=== PATIENT | male | born 1955 | race Caucasian/White ===

== ENCOUNTER 2016-11-02 06:06 | Inpatient (IN) | payer MEDICARE, BC ==
[2016-11-02] MEDS ORDERED: DOPamine 400mg/250ml D5W 400 MG/250 ML BAG IV ONE (06:15)
[2016-11-02] MEDS ORDERED: Morphine 4 MG/ML VIAL ONE (06:26)
[2016-11-02] MEDS ORDERED: DOBUTamine 500mg/250ml D5W 250 ML IV STA (06:32)
[2016-11-02] MEDS ORDERED: Nitroglycerin 50mg in D5W 50 MG/250 ML BOTTLE IV STA ×2 (06:32→07:30)
[2016-11-02] MEDS ORDERED: Morphine 4 MG/ML VIAL IV STA (06:32)
--- NOTE | 2016-11-02 06:32 | C.PDOC ---
History Of Present Illness pt found in acute respiratory distress at the care home. Pt is DNR/DNI. Placed on bipap. Family at bedside and is aware of his critical condition Time Seen by Provider: 11/02/16 06:07 Chief Complaint (Nursing): Respiratory Distress History Per: EMS History/Exam Limitations: clinical condition Onset/Duration Of Symptoms: Hrs Current Symptoms Are (Timing): Worse Initiating Event: Other Exacerbating Factor(s): Laying Flat Current Respiratory Medications: See Home Med List Severity: Severe Pain Scale Rating Of: 10 Associated Symptoms: denies: Fever, Chills Reports Recently: Treated By A Physician Additional History Per: EMS Past Medical History Reviewed: Historical Data, Nursing Documentation, Vital Signs Vital Signs: Last Vital Signs Temp Pulse 138 H 11/02/16 06:10 Resp 28 H 11/02/16 06:10 BP 162/97 H 11/02/16 06:10 Pulse Ox 93 L 11/02/16 06:10 - Medical History PMH: CHF, COPD, HTN Family History: States: No Known Family Hx - Social History Hx Alcohol Use: No Hx Substance Use: No - Immunization History Hx Tetanus Toxoid Vaccination: No Hx Influenza Vaccination: No Hx Pneumococcal Vaccination: No Review Of Systems Review Of Systems: ROS cannot be obtained secondary to pt's inabilty to answer questions. Physical Exam - Physical Exam Appears: In Acute Distress Skin: Diaphoretic Head: Normacephalic Oral Mucosa: Moist Neck: Supple Cardiovascular: Rhythm Regular (tachy) Respiratory: Decreased Breath Sounds, Rales (thruout), No Rhonchi, Wheezing (few ) Gastrointestinal/Abdominal: Soft, No Tenderness, No Distention Back: No CVA Tenderness Extremity: No Tenderness Extremity: Right: Other (bka) Neurological/Psych: No Response To Commands, Other (on bipap) Gait: Unable To Assess ED Course And Treatment ECG: Interpreted By Me, Viewed By Me ECG Rhythm: Sinus Tachycardia (143), Nonspecific Changes O2 Sat by Pulse Oximetry: 93 Pulse Ox Interpretation: Abnormal (placed on bipap) - Radiology CXR: Interpreted by Me, Viewed By Me Progress Note: did femoral stick in order to obtain blood. pt tolerated the procedure well. 6;50 pt more responsive. sat 98 % Critical Care Time - Critical Care Note Total Time (in mins): 30 Documented critical care: time excludes all time spent performing seperately billable procedures. Disposition Counseled Patient/Family Regarding: Studies Performed, Diagnosis - Disposition Disposition Time: 06:55 Condition: CRITICAL Forms: [employer] (Slovak) - Clinical Impression Clinical Impression: Acute pulmonary edema, Respiratory distress Physician Patient Turnover Patient Signed Over To: Marianela Peace Handoff Comments: pending labs and disposition
[2016-11-02 06:53] LABS: ABG MECHANICAL RATE 16; ARTERIAL BLOOD GAS MODE BiPAP
[2016-11-02 06:57] LABS: BASO # 0.3 K/uL (0.0-0.2); EOS # 0.2 K/uL (0.0-0.7); EOS % 0.6 % (0.0-4.0); HEMATOCRIT 36.8 % (35.0-51.0); LYMPH # 1.9 K/uL (1.0-4.3); LYMPH % 5.8 % (20.0-40.0); MEAN CELL VOLUME 85.4 fL (80.0-94.0); MEAN CORPUSCULAR HEMOGLOBIN 27.5 pg (27.0-31.0); MEAN CORPUSCULAR HGB CONC 32.2 g/dL (33.0-37.0); MEAN PLATELET VOLUME 7.9 fL (7.2-11.7); MONO # 2.5 K/uL (0.0-0.8); MONO % 7.7 % (0.0-10.0); PLATELET COUNT 536 K/uL (130-400); RED CELL DISTRIBUTION WIDTH 15.3 % (11.5-14.5); WHITE BLOOD COUNT 32.3 K/uL (4.8-10.8)
[2016-11-02] MEDS ORDERED: Albuterol-Ipratrop 3 mg / 0.5 (3 ml) UD ONE (07:01)
[2016-11-02] MEDS ORDERED: DOBUTamine 500mg/250ml D5W 500 MG/250 ML BAG IV STA (07:03)
[2016-11-02 07:18] LABS: CHLORIDE 95 mmol/L (98-107)
[2016-11-02 07:19] LABS: POTASSIUM 4.9 mmol/L (3.6-5.2); SODIUM 137 mmol/L (132-148)
[2016-11-02 07:22] LABS: ALB/GLOB RATIO 0.9 (1.0-2.1); ALKALINE PHOSPHATASE 105 U/L (38-126); ALT/SGPT 59 U/L (21-72); AST/SGOT 47 U/L (17-59); BILIRUBIN,TOTAL 0.6 mg/dL (0.2-1.3); BLOOD UREA NITROGEN 26 mg/dL (9-20); CARBON DIOXIDE 31 mmol/L (22-30); GFR AFRICAN-AMERICAN > 60; GLUCOSE,RANDOM 253 mg/dL (75-110); TOTAL PROTEIN 6.9 g/dL (6.3-8.3)
[2016-11-02 07:31] VITALS: O2SAT 100
[2016-11-02 07:48] LABS: RBC URINE 2 /hpf (0-3); URINE BACTERIA RARE (<OCC); URINE BILIRUBIN NEGATIVE (NEGATIVE); URINE BLOOD 1+ (NEGATIVE); URINE COLOR Yellow (YELLOW); URINE GLUCOSE (UA) 3+ mg/dL (Normal); URINE KETONE NEGATIVE (NEGATIVE); URINE LEUKOCYTE ESTERASE TRACE Leu/uL (Negative); URINE PROTEIN 2+ mg/dL (NEGATIVE); URINE UROBILINOGEN NORMAL mg/dL (0.2-1.0); WBC URINE 18 /hpf (0-5)
[2016-11-02] MEDS ORDERED: Nitroglycerin 2% Ointment Foilpak UD TOP STA (07:56)
[2016-11-02] MEDS ORDERED: Moxifloxacin IV 400mg/250ml NS 400 MG/250 ML BAG IVPB ONE (07:56)
[2016-11-02] MEDS ORDERED: Nitroglycerin 2% Ointment Foilpak UD TOP ONE (08:09)
[2016-11-02 08:15] LABS: NEUTROPHIL 86 % (50-75); TOTAL CELLS COUNTED 100
[2016-11-02] MEDS ORDERED: Cefepime IV 2 gm in Dextrose 2 GM/100 ML BAG IVPB STA (08:18)
[2016-11-02] MEDS ORDERED: Vancomycin 1 GM 1 GM/250 ML BAG IVPB ONE ×2 (09:00→09:15)
--- NOTE | 2016-11-02 10:29 | RAD ---
PROCEDURE: CHEST RADIOGRAPH, 1 VIEW HISTORY: Shortness of breath COMPARISON: 11/06/2014 FINDINGS: LUNGS: Prominent diffuse increased interstitial lung consolidative markings throughout both lungs most predominant in the upper to mid lung zones on the right and throughout the left lung. Suggestion of a small left pleural effusion. PLEURA: As above. CARDIOVASCULAR: Status post median sternotomy. Cardiomegaly. OSSEOUS STRUCTURES: No significant abnormalities. VISUALIZED UPPER ABDOMEN: Normal. OTHER FINDINGS: None. IMPRESSION: Prominent diffuse increased interstitial lung consolidative markings throughout both lungs most predominant in the upper to mid lung zones on the right and throughout the left lung. Suggestion of a small left pleural effusion.
--- NOTE | 2016-11-02 11:12 | CP.PCM.PN ---
Subjective - Date & Time of Evaluation Date of Evaluation: 11/02/16 Time of Evaluation: 11:00 - Subjective Subjective: PROGRESS NOTE. Service for Dr. West This is a 61 yo male with past medical hx of CAD, DM, COPD, CHF presenting from [facility] in [place]. Pt on bipap at time of evaluation and direct hx obtained from pt was limited. Hx mainly obtained from pt's sunshine. Pt normally goes to [facility] and was taken here because of proximity. Pt's sunshine received call from skilled nursing this morning saying pt was short of breath and needed to go to hospital. Pt has had multiple hospital admissions recently with similar complaints. Pt given lasix and abx in ER, and was placed on bipap. Pt now saturating well, with some improvement in sob. Denies chest pain, fevers, chills, vomiting, diarrhea, any other complaints. PMH: CAD, DM, COPD, CHF PSH: triple bypass, hernia repair, multiple coronary stents, right leg below the knee amputation Allergies: NKDA FH: Non contributory Social hx: Long time smoker. Does not smoke now. Previously 2-3 ppd. No drinking or substance use. Born in . Lives in [facility]. Objective - Vital Signs/Intake and Output Vital Signs (last 24 hours): Temp Pulse Resp BP Pulse Ox 98.5 F 105 H 25 H 118/75 100 11/02/16 06:50 11/02/16 09:44 11/02/16 09:44 11/02/16 09:44 11/02/16 09:44 Intake and Output: 11/02/16 11/02/16 06:59 18:59 Output Total 150 Balance -150 - Medications Medications: Current Medications Albuterol/Ipratropium (Duoneb 3 Mg/0.5 Mg (3 Ml) Ud) 3 ml INH RQ6 LISA Aspirin (Aspirin Chewable) 81 mg PO DAILY LISA Clopidogrel Bisulfate (Plavix) 75 mg PO DAILY LISA Famotidine (Pepcid) 20 mg PO Q12 LISA Furosemide (Lasix) 40 mg IVP DAILY [facility] Home Med (Arformoterol [Brovana]) 15 mcg IH Q12 LISA Insulin Human Regular (Novolin R) 0 unit SC ACHS LISA PRN Reason: Protocol Lisinopril (Zestril) 20 mg PO DAILY LISA Methylprednisolone (Solu-Medrol) 40 mg IVP Q12 LISA Rosuvastatin Calcium (Crestor) 40 mg PO HS LISA - Labs Labs: PT 11.4 SECONDS (9.7-12.2) 11/02/16 06:54 INR 1.0 11/02/16 06:54 APTT 31 SECONDS (21-34) 11/02/16 06:54 - Constitutional Appears: In Acute Distress, Chronically Ill - Head Exam Head Exam: ATRAUMATIC, NORMAL INSPECTION, NORMOCEPHALIC - Eye Exam Eye Exam: EOMI - ENT Exam ENT Exam: Mucous Membranes Moist - Neck Exam Neck Exam: Full ROM, Normal Inspection - Respiratory Exam Respiratory Exam: Rales. absent: NORMAL BREATHING PATTERN - Cardiovascular Exam Cardiovascular Exam: Tachycardia, +S1, +S2 - GI/Abdominal Exam GI & Abdominal Exam: Soft, Normal Bowel Sounds. absent: Tenderness - Extremities Exam Extremities Exam: absent: Full ROM, Normal Inspection Additional comments: right leg BKA - Neurological Exam Neurological Exam: Alert, Awake - Psychiatric Exam Psychiatric exam: Normal Affect, Normal Mood - Skin Skin Exam: Dry, Intact, Normal Color, Warm Assessment and Plan - Assessment and Plan (Free Text) Assessment: This is a 61 yo male with past medical hx of CAD, COPD, CHF, DM presenting with acute shortness of breath and acute pulmonary edema 1. Shortness of breath -likely secondary to acute pulmonary edema -on bipap currently -echo pending -lasix 40 IV daily -I/O -daily weight -ekg shows sinus tachycardia -continue chelo inhibitor lisinopril -abg shows ph of 7.23, pc02 70, po2 111 -cxr shows lots of interstitial lung markings consolidative 2. hx of CAD -continue daily asa -continue plavix -continue statin PO HS 3. hx of COPD -we will start solumedrol 40 IV q 12 -duonebs -bipap as needed 4. hx of DM -ISS -accuchecks 5. Leukocytosis -steroids vs. infection -will order procal -will start vanco 1 g daily -blood, urine, sputum cultures pending 6. Normocytic anemia -iron, tibc, ferritin pending 7. Thrombocytosis -etiology unclear, may be secondary to infectious process -will continue to monitor 8. GI/DVT ppx -pepcid daily -SCDs discussed with Dr. West
[2016-11-02 12:03] LABS: IRON 13 ug/dL (49-181)
[2016-11-02] MEDS: (Novolin R) Insulin Human Regular 100 units/ml vial SC SCH ×2 (13:09→18:19)
[2016-11-02] MEDS: Albuterol-Ipratrop 3 mg / 0.5 (3 ml) UD INH SCH ×2 (13:42→19:35)
--- NOTE | 2016-11-02 13:53 | CP.PCM.CON ---
History of Present Illness - History of Present Illness History of Present Illness: Palliative consult Requested by Jenna YANEZ Reason: Goals of care Patient is a 61 yo male admitted from [facility] with SOB. Patient was just recently transferred to [facility] from [facility] [place] he was treated for similar symptoms and was asisted with MV.Patient last extubated on 10/25/16. Upon this admission to ER patient was given Lasix, and placed on Bi Pap what improved his condition. BNP 3000. WBC 32.3. Vanco Iv initiated. Patient has DNR/DNI signed upon arrival to ER. Palliative care was called to discuss further goals of care as patient and family requested Hospice care. PMH: CAD, GERD, CHF, Right BKA 3 years ago, DM, PVD, multiple assistances with MV, last extubation on 10/25/2016 Soc. Hx: single, lives with fiancee Review of Systems - Constitutional Constitutional: Weakness - EENT Eyes: absent: As Per HPI, Blind Spots, Blurred Vision, Change in Vision, Decreased Night Vision, Diplopia, Discharge, Dry Eye, Exophthalmos, Floaters, Irritation, Itchy Eyes, Loss of Peripheral Vision, Pain, Photophobia, Requires Corrective Lenses, Sees Flashes, Spots in Vision, Tunnel Vision, Other Visual Disturbances, Loss of Vision, Other Ears: absent: As Per HPI, Decreased Hearing, Ear Discharge, Ear Pain, Tinnitus, Abnormal Hearing, Disequilibrium, Dizziness, Other Nose/Mouth/Throat: absent: As Per HPI, Epistaxis, Nasal Congestion, Nasal Discharge, Nasal Obstruction, Nasal Trauma, Nose Pain, Post Nasal Drip, Sinus Pain, Sinus Pressure, Bleeding Gums, Change in Voice, Dental Pain, Dry Mouth, Dysphagia, Halitosis, Hoarsness, Lip Swelling, Mouth Lesions, Mouth Pain, Odynophagia, Sore Throat, Throat Swelling, Tongue Swelling, Facial Pain, Neck Pain, Neck Mass, Other - Cardiovascular Cardiovascular: Dyspnea, Dyspnea on Exertion, Palpitations - Respiratory Respiratory: Dyspnea, Dyspnea on Exertion, Chest Congestion - Gastrointestinal Gastrointestinal: absent: As Per HPI, Abdominal Pain, Belching, Bloating, Change in Bowel Habits, Change in Stool Character, Coffee Ground Emesis, Constipation, Cramping, Diarrhea, Dyspepsia, Dysphagia, Early Satiety, Excessive Flatus, Fecal Incontinence, Heartburn, Hematemesis, Hematochezia, Loose Stools, Melena, Nausea, Odynophagia, Temesmus, Vomiting, Other - Genitourinary Genitourinary: absent: As Per HPI, Change in Urinary Stream, Difficulty Urinating, Dysuria, Flank Pain, Hematuria, Pyuria, Nocturia, Urinary Incontinence, Urinary Frequency, Urinary Hesitance, Urinary Urgency, Voiding Freq/Small Amts, Freq UTI, Hx Renal/Bladder Calculi, Hx /Renal Surgery, Bladder Distension, Other - Musculoskeletal Musculoskeletal: Deformity, Limited Range of Motion, Muscle Weakness - Integumentary Integumentary: absent: As Per HPI, Acne, Alopecia, Bleeding Lesions, Change in Hair, Change in Nails, Change in Pigmentation, Changing Lesions, Dry Skin, Erythema, Furuncle, Hirsutism, Lesions, New Lesions, Non-Healing Lesions, Photosensitivity, Pruritus, Rash, Skin Pain, Skin Ulcer, Sores, Striae, Swelling , Unusual Bruising, Wounds, Jaundice, Other - Neurological Neurological: absent: As Per HPI, Abnormal Gait, Abnormal Hearing, Abnormal Movements, Abnormal Speech, Behavioral Changes, Burning Sensations, Confusion, Convulsions, Disequilibrium, Dizziness, Numbness, Focal Weakness, Frequent Falls , Headaches, Lack of Coordination, Loss of Vision, Memory Loss, Paresthesias, Radicular Pain, Restless Legs, Sensory Deficit, Syncope, Tingling, Tremor, Vertigo, Weakness, Other Visual Disturbances, Other - Psychiatric Psychiatric: absent: As Per HPI, Abnormal Sleep Pattern, Anhedonia, Anxiety, Auditory Hallucinations, Behavioral Changes, Change in Appetite, Change in Libido, Confusion, Depression, Difficulty Concentrating, Hallucinations, Homicidal Ideation, Hopelessness, Irritability, Memory Loss, Mood Swings, Panic Attacks, Paranoia, Suicidal Ideation, Visual Hallucinations, Tactile Hallucinations, Other - Endocrine Endocrine: absent: As Per HPI, Change in Body Appearance, Change in Libido, Cold Intolorance, Deepening of Voice, Excessive Sweating, Fatigue, Flushing, Heat Intolorance, Increase in Ring/Shoe/Hat Size, Palpitations, Polydipsia, Polyphagia, Polyuria, Other - Hematologic/Lymphatic Hematologic: absent: As Per HPI, Easy Bleeding, Easy Bruising, Lymphadenopathy, Other Past Patient History - Past Medical History & Family History Past Medical History?: Yes - Past Social History Smoking Status: SMOKED JOSE - CARDIAC Hx Congestive Heart Failure: Yes Hx Hypertension: Yes - PULMONARY Hx Chronic Obstructive Pulmonary Disease (COPD): Yes - NEUROLOGICAL Hx Neurological Disorder: No - HEENT Hx HEENT Problems: No - RENAL Hx Chronic Kidney Disease: No - ENDOCRINE/METABOLIC Hx Diabetes Mellitus Type 2: Yes - HEMATOLOGICAL/ONCOLOGICAL Hx Blood Disorders: No - INTEGUMENTARY Hx Dermatological Problems: No - MUSCULOSKELETAL/RHEUMATOLOGICAL Hx Musculoskeletal Disorders: No Hx Falls: No - GASTROINTESTINAL Hx Gastrointestinal Disorders: No - GENITOURINARY/GYNECOLOGICAL Hx Genitourinary Disorders: No - PSYCHIATRIC Hx Substance Use: No - SURGICAL HISTORY Hx Surgeries: No - ANESTHESIA Hx Anesthesia: Yes Hx Anesthesia Reactions: No Hx Malignant Hyperthermia: No Has any member of the family had a problem w/ anesthesia?: No Meds Allergies/Adverse Reactions: Allergies Allergy/AdvReac Type Severity Reaction Status Date / Time No Known Allergies Allergy Verified 11/02/16 06:19 - Medications Medications: Current Medications Albuterol/Ipratropium (Duoneb 3 Mg/0.5 Mg (3 Ml) Ud) 3 ml INH RQ6 LISA Last Admin: 11/02/16 13:42 Dose: 3 ml Aspirin (Aspirin Chewable) 81 mg PO DAILY LISA Clopidogrel Bisulfate (Plavix) 75 mg PO DAILY LISA Famotidine (Pepcid) 20 mg PO Q12 LISA Furosemide (Lasix) 40 mg IVP DAILY [facility] Home Med (Arformoterol [Brovana]) 15 mcg IH Q12 LISA Vancomycin/Sodium Chloride (Vancocin) 1 gm in 200 mls @ 133 mls/hr IVPB Q24H LISA Stop: 11/08/16 10:01 Insulin Human Regular (Novolin R) 0 unit SC ACHS LISA PRN Reason: Protocol Last Admin: 11/02/16 13:09 Dose: Not Given Lisinopril (Zestril) 20 mg PO DAILY [facility] Methylprednisolone (Solu-Medrol) 40 mg IVP Q12 LISA Rosuvastatin Calcium (Crestor) 40 mg PO HS LISA Physical Exam - Constitutional Appears: Chronically Ill - Head Exam Head Exam: ATRAUMATIC, NORMAL INSPECTION, NORMOCEPHALIC - Eye Exam Eye Exam: EOMI, Normal appearance, PERRL Pupil Exam: NORMAL ACCOMODATION, PERRL - ENT Exam ENT Exam: Mucous Membranes Moist, Normal Exam - Neck Exam Neck exam: Positive for: Normal Inspection - Respiratory Exam Respiratory Exam: Decreased Breath Sounds, Respiratory Distress - Cardiovascular Exam Cardiovascular Exam: Tachycardia, REGULAR RHYTHM - GI/Abdominal Exam GI & Abdominal Exam: Normal Bowel Sounds, Soft - Rectal Exam Rectal Exam: Deferred - Extremities Exam Extremities exam: Positive for: normal inspection Additional comments: left BKA - Back Exam Back exam: NORMAL INSPECTION - Neurological Exam Neurological exam: Alert, Oriented x3 - Psychiatric Exam Psychiatric exam: Anxious - Skin Skin Exam: Pallor Results - Vital Signs Recent Vital Signs: Last Vital Signs Temp 98.5 F 11/02/16 06:50 Pulse 105 H 11/02/16 13:42 Resp 25 H 11/02/16 09:44 BP 118/75 11/02/16 09:44 Pulse Ox 100 11/02/16 09:44 - Labs Result Diagrams: 11/02/16 06:54 11/02/16 06:54 Labs: Laboratory Results - last 24 hr 11/02/16 11/02/16 11/02/16 11:41 11:41 11:41 POC Glucose (mg/dL) Iron 13 L TIBC 238 L % Saturation 6 L Transferrin 170.24 L Ferritin 192.0 11/02/16 11:50 POC Glucose (mg/dL) 175 H Iron TIBC % Saturation Transferrin Ferritin Assessment & Plan - Assessment and Plan (Free Text) Assessment: Palliative consult Code status DNR/DNI, POLST on chart I reviewed medical records, all diagnostic studies, examined patient and discussed goals of care in presence of his brother Alphonso and Kyle Clayton. Patient is alert, oriented X 3, in mild respiratory distress on Bi Pap with affect that is anxious. Patient makes eye contacts and communicated by nodding his head.Patient's condition improved since Lasix and Solu Medrol given in ER. Breath sounds are diminished, HR 105, BP 118/75. Skin is pale. Abdomen is soft with active bowel sounds. Patient's fiancee and brother Vamsi requested more information about hospice care. I reviewed it and suggested that Hospice could be given either at home or NH. Family was interested in inhouse hospice . I communicated this to the medical device sales Doctor Marcos. I reviewed the DNR/DNI status with patient and he confirmed it. Kyle was present. Patient wishes to peacefully with his family at bed side, to be cremated and to have NO wake. Family is requesting Private room. Impression * This is chronically ill patient with acute respiratory distress improved on BiPap and Lasix * Patient is fully aware of his condition and diagnosis and is clear that he would not want to be intubated any more * Requires max assistance with ADLs * Family and patient interested in Hospice care Suggestion * Supportive care * Promote bed rest to preserve energy * Would consider Hospice evaluation * Please provide private room if possible to accommodate family visits * DNR/DNI I will be fallowing with patient and family and offer them support. Thank you for consulting Palliative care.
[2016-11-02 16:18] VITALS: BP 123/83; RESP 19; TEMP 97.4
[2016-11-02] MEDS ORDERED: Enoxaparin 80 mg Syringe SC ONE (18:00)
[2016-11-02 19:38] VITALS: PULSE 97
--- NOTE | 2016-11-02 19:50 | CP.PCM.CON ---
History of Present Illness - History of Present Illness History of Present Illness: came to see patient. He is currently being tranferred to [facility] at the request of the patient and family. I will evaluate there. I discussed with patient and family members at the bedside. Past Patient History - Past Medical History & Family History Past Medical History?: Yes - Past Social History Smoking Status: SMOKED JOSE - CARDIAC Hx Congestive Heart Failure: Yes Hx Hypertension: Yes - PULMONARY Hx Chronic Obstructive Pulmonary Disease (COPD): Yes - NEUROLOGICAL Hx Neurological Disorder: No - HEENT Hx HEENT Problems: No - RENAL Hx Chronic Kidney Disease: No - ENDOCRINE/METABOLIC Hx Diabetes Mellitus Type 2: Yes - HEMATOLOGICAL/ONCOLOGICAL Hx Blood Disorders: No - INTEGUMENTARY Hx Dermatological Problems: No - MUSCULOSKELETAL/RHEUMATOLOGICAL Hx Musculoskeletal Disorders: No Hx Falls: No - GASTROINTESTINAL Hx Gastrointestinal Disorders: No - GENITOURINARY/GYNECOLOGICAL Hx Genitourinary Disorders: No - PSYCHIATRIC Hx Substance Use: No - SURGICAL HISTORY Hx Surgeries: No - ANESTHESIA Hx Anesthesia: Yes Hx Anesthesia Reactions: No Hx Malignant Hyperthermia: No Has any member of the family had a problem w/ anesthesia?: No Meds Home Medications: Home Medication List Medication Instructions Recorded Confirmed Type Albuterol/Ipratropium [Duoneb 3 3 ml INH RQ6 11/02/16 Rx mg/0.5 mg (3 ml) UD] Enoxaparin [Lovenox] 80 mg SC ONCE syr 11/02/16 Rx Furosemide [Lasix] 40 mg IVP DAILY vial 11/02/16 Rx Insulin Human Regular [Novolin R] 0 unit SC ACHS unit 11/02/16 Rx Lisinopril [Zestril] 20 mg PO DAILY tab 11/02/16 Rx Morphine 2 mg IVP Q4 PRN 11/02/16 Rx methylPREDNISolone [Solu-Medrol] 40 mg IVP Q12 ml 11/02/16 Rx Allergies/Adverse Reactions: Allergies Allergy/AdvReac Type Severity Reaction Status Date / Time No Known Allergies Allergy Verified 11/02/16 06:19 - Medications Medications: Current Medications Albuterol/Ipratropium (Duoneb 3 Mg/0.5 Mg (3 Ml) Ud) 3 ml INH RQ6 LISA Last Admin: 11/02/16 19:35 Dose: 3 ml Aspirin (Aspirin Chewable) 81 mg PO DAILY LISA Clopidogrel Bisulfate (Plavix) 75 mg PO DAILY LISA Famotidine (Pepcid) 20 mg PO Q12 LISA Furosemide (Lasix) 40 mg IVP DAILY [facility] Home Med (Arformoterol [Brovana]) 15 mcg IH Q12 LISA Vancomycin/Sodium Chloride (Vancocin) 1 gm in 200 mls @ 133 mls/hr IVPB Q24H LISA Stop: 11/08/16 10:01 Insulin Human Regular (Novolin R) 0 unit SC ACHS LISA PRN Reason: Protocol Last Admin: 11/02/16 18:19 Dose: Not Given Lisinopril (Zestril) 20 mg PO DAILY [facility] Methylprednisolone (Solu-Medrol) 40 mg IVP Q12 [facility] Morphine Sulfate (Morphine) 2 mg IVP Q4 PRN PRN Reason: Pain, moderate (4-7) Last Admin: 11/02/16 19:25 Dose: 2 mg Rosuvastatin Calcium (Crestor) 40 mg PO HS [facility] Results - Vital Signs Recent Vital Signs: Last Vital Signs Temp 97.4 F L 11/02/16 16:18 Pulse 97 H 11/02/16 19:36 Resp 19 11/02/16 16:18 BP 123/83 11/02/16 16:18 Pulse Ox 100 11/02/16 16:18 - Labs Result Diagrams: 11/02/16 06:54 11/02/16 06:54 Labs: Laboratory Results - last 24 hr 11/02/16 11/02/16 11/02/16 11:41 11:41 11:41 POC Glucose (mg/dL) Iron 13 L TIBC 238 L % Saturation 6 L Transferrin 170.24 L Ferritin 192.0 Troponin I 11/02/16 11/02/16 11:50 14:02 POC Glucose (mg/dL) 175 H Iron TIBC % Saturation Transferrin Ferritin Troponin I 1.8100 H*
--- NOTE | 2016-11-02 20:00 | CP.PCM.CON ---
Past Patient History - Past Medical History & Family History Past Medical History?: Yes - Past Social History Smoking Status: SMOKED JOSE - CARDIAC Hx Congestive Heart Failure: Yes Hx Hypertension: Yes - PULMONARY Hx Chronic Obstructive Pulmonary Disease (COPD): Yes - NEUROLOGICAL Hx Neurological Disorder: No - HEENT Hx HEENT Problems: No - RENAL Hx Chronic Kidney Disease: No - ENDOCRINE/METABOLIC Hx Diabetes Mellitus Type 2: Yes - HEMATOLOGICAL/ONCOLOGICAL Hx Blood Disorders: No - INTEGUMENTARY Hx Dermatological Problems: No - MUSCULOSKELETAL/RHEUMATOLOGICAL Hx Musculoskeletal Disorders: No Hx Falls: No - GASTROINTESTINAL Hx Gastrointestinal Disorders: No - GENITOURINARY/GYNECOLOGICAL Hx Genitourinary Disorders: No - PSYCHIATRIC Hx Substance Use: No - SURGICAL HISTORY Hx Surgeries: No - ANESTHESIA Hx Anesthesia: Yes Hx Anesthesia Reactions: No Hx Malignant Hyperthermia: No Has any member of the family had a problem w/ anesthesia?: No Meds Home Medications: Home Medication List Medication Instructions Recorded Confirmed Type Albuterol/Ipratropium [Duoneb 3 3 ml INH RQ6 11/02/16 Rx mg/0.5 mg (3 ml) UD] Enoxaparin [Lovenox] 80 mg SC ONCE syr 11/02/16 Rx Furosemide [Lasix] 40 mg IVP DAILY vial 11/02/16 Rx Insulin Human Regular [Novolin R] 0 unit SC ACHS unit 11/02/16 Rx Lisinopril [Zestril] 20 mg PO DAILY tab 11/02/16 Rx Morphine 2 mg IVP Q4 PRN 11/02/16 Rx methylPREDNISolone [Solu-Medrol] 40 mg IVP Q12 ml 11/02/16 Rx Allergies/Adverse Reactions: Allergies Allergy/AdvReac Type Severity Reaction Status Date / Time No Known Allergies Allergy Verified 11/02/16 06:19 - Medications Medications: Current Medications Albuterol/Ipratropium (Duoneb 3 Mg/0.5 Mg (3 Ml) Ud) 3 ml INH RQ6 LISA Last Admin: 11/02/16 19:35 Dose: 3 ml Aspirin (Aspirin Chewable) 81 mg PO DAILY LISA Clopidogrel Bisulfate (Plavix) 75 mg PO DAILY LISA Famotidine (Pepcid) 20 mg PO Q12 LISA Furosemide (Lasix) 40 mg IVP DAILY [facility] Home Med (Arformoterol [Brovana]) 15 mcg IH Q12 LISA Vancomycin/Sodium Chloride (Vancocin) 1 gm in 200 mls @ 133 mls/hr IVPB Q24H LISA Stop: 11/08/16 10:01 Insulin Human Regular (Novolin R) 0 unit SC ACHS LISA PRN Reason: Protocol Last Admin: 11/02/16 18:19 Dose: Not Given Lisinopril (Zestril) 20 mg PO DAILY LISA Methylprednisolone (Solu-Medrol) 40 mg IVP Q12 LISA Morphine Sulfate (Morphine) 2 mg IVP Q4 PRN PRN Reason: Pain, moderate (4-7) Last Admin: 11/02/16 19:25 Dose: 2 mg Rosuvastatin Calcium (Crestor) 40 mg PO HS LISA Results - Vital Signs Recent Vital Signs: Last Vital Signs Temp 97.4 F L 11/02/16 16:18 Pulse 97 H 11/02/16 19:36 Resp 19 11/02/16 16:18 BP 123/83 11/02/16 16:18 Pulse Ox 100 11/02/16 16:18 - Labs Result Diagrams: 11/02/16 06:54 11/02/16 06:54 Labs: Laboratory Results - last 24 hr 11/02/16 11/02/16 11/02/16 11:41 11:41 11:41 POC Glucose (mg/dL) Iron 13 L TIBC 238 L % Saturation 6 L Transferrin 170.24 L Ferritin 192.0 Troponin I 11/02/16 11/02/16 11:50 14:02 POC Glucose (mg/dL) 175 H Iron TIBC % Saturation Transferrin Ferritin Troponin I 1.8100 H*
[2016-11-02] MEDS ORDERED: MethylPREDNISolone 40 mg Vial IVP SCH (22:00)
[2016-11-02] MEDS ORDERED: Home Med 1 UNIT (Arformoterol [Brovana] 15 MCG) IH SCH (22:00)
[2016-11-03] MEDS ORDERED: Vancomycin 1 gm/NS 200 ml 1 GM/200 ML BAG IVPB SCH (10:00)
== END 2016-11-02 20:15 | disposition home or self-care (01) | DRG 293 ==
LOC: C.ER 06:06 → C.9E 09:16 → C.6T 09:32 → C.5S 12:44
PROVIDERS: ADMIT Internal Medicine Pulmonary Disease; ATTEND Internal Medicine Pulmonary Disease
DX: I11.0 Hypertensive heart disease with heart failure (principal); E11.51 Type 2 diabetes mellitus with diabetic peripheral angiopathy without gangrene; F17.200 Nicotine dependence, unspecified, uncomplicated; D75.89 Other specified diseases of blood and blood-forming organs; I50.9 Heart failure, unspecified; I25.10 Atherosclerotic heart disease of native coronary artery without angina pectoris; K21.9 Gastro-esophageal reflux disease without esophagitis; J44.9 Chronic obstructive pulmonary disease, unspecified; Z66 Do not resuscitate; Z51.5 Encounter for palliative care; Z79.899 Other long term (current) drug therapy; Z79.4 Long term (current) use of insulin; Z89.511 Acquired absence of right leg below knee; Z95.5 Presence of coronary angioplasty implant and graft